=== PATIENT | male | born 1950 | race Caucasian/White ===

== ENCOUNTER → 2017-05-16 | Outpatient (CLI) | payer BC ==
[~2017-05-16] MED LIST: METO25TA3 PO
[2017-05-16 17:47] LABS: ALT/SGPT 20 U/L (12-78); AST/SGOT 13 U/L (15-37); BLOOD UREA NITROGEN 25 mg/dl (7-18); CALCIUM 8.2 mg/dl (8.5-10.1); CARBON DIOXIDE 29 mmol/L (21-32); CHLORIDE 107 mmol/L (98-107); GLUCOSE 92 mg/dl (70-99); POTASSIUM 4.3 mmol/L (3.5-5.1); SODIUM 140 mmol/L (136-145)
[2017-05-16 17:50] LABS: ALB/GLOB RATIO 1.1 (0.9-2); ALKALINE PHOSPHATASE 67 U/L (45-117); CHOLESTEROL 171 mg/dl (0-200); CHOLESTEROL/HDL RATIO 4.2; HDL CHOLESTEROL 41 mg/dl; LDL CHOLESTEROL CALCULATED 106 mg/dl; TRIGLYCERIDES 119 mg/dl (0-150); VERY LOW DENSITY LIPOPROT CALC 24 mg/dl
== END | disposition home or self-care (01) ==
LOC: C.LABPVFM 11:09
PROVIDERS: ATTEND Family Medicine
DX: E78.5 Hyperlipidemia, unspecified (principal); E55.9 Vitamin D deficiency, unspecified

== ENCOUNTER 2025-03-11 08:31 | Observation (INO) ==
--- NOTE | 2025-02-06 12:06 | PAT Medication Instructions ---
Medication Instructions Date of Service February 06, 2025 Home Medications Medication Instructions Recorded Wheeled Walker #1 ea 03/03/23 ondansetron 4 mg disintegrating 4 mg PO Q8 PRN nausea #20 tabs 03/13/23 tablet oxycodone 5 mg tablet 5 - 10 mg (1 - 2 x 5 mg) PO Q6 PRN 03/13/23 pain #40 tabs amoxicillin 875 mg-potassium 1 tab PO BID #20 tabs 02/04/25 clavulanate 125 mg tablet cholecalciferol (vitamin D3) 125 mcg (5,000 unit) tablet (Vitamin D3) 5,000 unit PO QAM cyanocobalamin (vitamin B-12) 1,000 mcg tablet (Vitamin B-12) 1,000 mcg PO QAM metoprolol succinate 25 mg tablet,extended release 24 hr 25 mg PO QAM multivitamin 1 tab PO QAM tamsulosin 0.4 mg capsule 0.4 mg PO HS ondansetron 4 mg disintegrating tablet 4 mg PO Q8 PRN nausea oxycodone 5 mg tablet 5 - 10 mg (1 - 2 x 5 mg) PO Q6 PRN pain amoxicillin 875 mg-potassium clavulanate 125 mg tablet 1 tab PO BID acetaminophen 500 mg tablet (Tylenol Extra Strength) 1,000 mg PO TID PRN pain aspirin 81 mg tablet,delayed release (Edinson Low Dose Aspirin) 81 mg PO QAM evolocumab 140 mg/mL subcutaneous pen injector (Repatha SureClick) 140 mg subcut UD ketorolac 10 mg tablet 10 mg PO Q6 PRN pain Continue as directed amoxicillin 875 mg-potassium clavulanate 125 mg tablet 1 tab PO BID ASK your surgeon for instructions ketorolac 10 mg tablet 10 mg PO Q6 PRN pain ASK your prescriber and surgeon aspirin 81 mg tablet,delayed release (Edinson Low Dose Aspirin) 81 mg PO QAM evolocumab 140 mg/mL subcutaneous pen injector (Repatha SureClick) 140 mg subcut UD DO NOT take the morning of surgery cholecalciferol (vitamin D3) 125 mcg (5,000 unit) tablet (Vitamin D3) 5,000 unit PO QAM cyanocobalamin (vitamin B-12) 1,000 mcg tablet (Vitamin B-12) 1,000 mcg PO QAM multivitamin 1 tab PO QAM Take morning of surgery With a small sip of water, OTHERWISE NOTHING TO EAT OR DRINK AFTER MIDNIGHT: metoprolol succinate 25 mg tablet,extended release 24 hr 25 mg PO QAM ondansetron 4 mg disintegrating tablet 4 mg PO Q8 PRN nausea (if needed) oxycodone 5 mg tablet 5 - 10 mg (1 - 2 x 5 mg) PO Q6 PRN pain (if needed) acetaminophen 500 mg tablet (Tylenol Extra Strength) 1,000 mg PO TID PRN pain (if needed) Take evening before surgery tamsulosin 0.4 mg capsule 0.4 mg PO HS ondansetron 4 mg disintegrating tablet 4 mg PO Q8 PRN nausea (if needed) oxycodone 5 mg tablet 5 - 10 mg (1 - 2 x 5 mg) PO Q6 PRN pain (if needed) acetaminophen 500 mg tablet (Tylenol Extra Strength) 1,000 mg PO TID PRN pain (if needed) Other Notes If you have any questions please call us at [phone] or [phone] or [phone] or [phone]
--- NOTE | 2025-02-13 08:39 | Anesthesiology Consultation ---
Date of Service February 13, 2025 Assessment & Plan (1) Encounter for pre-operative examination: - Case discussed in detail with Dr. Parham who advised patient is acceptable to proceed with elective surgery without further evaluation from his standpoint. - ER 02/04/25 [facility]: "...has an elderly dog that he was taking outside to use the bathroom...dog got startled and bit the patient on the right hand...Patient was given Augmentin and Vicodin here in the ER...will provide a home pack of Vicodin and prescription for Augmentin...Wound was further dressed with a bacitracin dressing, nonadherent, and gauze. Patient is to monitor for signs of infection..." Patient states was also started on doxycycline by [facility] PCP due to new surrounding erythema 02/07 and is doing well now 6 days into 100 mg bid prescription. Surgeon's office made aware. - cardiology [facility] phone visit 01/21/25 S: "...referred for HLD management...controlled dyslipidemia...atherosclerosis-CT chest 07/2018 showing scattered calcified atherosclerotic plaques throughout the descending aorta, also seen on duplex scan of carotid artery 05/2010...will discharge patient from cardiology [facility] at this time..." - cardiology office 10/02/2024 [facility]: "...ascending aortic aneurysm s/p redo- sternotomy and aortic root replacement with a bioprosthetic valve conduit, 27 mm [place] R Epic (bioprosthesis) and a 32 mm Valsalva graft 07/14/14. Hx of remote aortic dissection in 2004 s/p repair...postoperative atrial fibrillation and heart block which spontaneously resolved. Beta-divya subsequently restarted...occasionally experiences a brief 'twang' of pain lasting about ten seconds, which he has had even before his first heart issue. No chest pain with exertion. Occasional heart racing or fluttering, but these episodes do not last long. Experiences dizziness when standing up quickly but denies any persistent dizziness or syncope...no carotid bruits...chronic noncardiac chest discomfort...stable...monitor with echo every 1-2 years... - s/p right TKA 03/15/23 SAB L3-L4 1 attempt + PNB. - Outpatient joint assessment: Patient is currently scheduled for inpatient pathway. If re-evaluated and patient/surgeon requests outpatient pathway, patient is not advised candidate for outpatient joint program. Chart Review Chart Review: Acceptable Risk for Surgery and Patient seen in Pre Admission Testing Teaching & Discussion Pre-Anesthesia Teaching/Discussion Notes: Instructed NPO after midnight before surgery, except medications with 15 cc of water. Medication instructions pr ovided according to the PAT guidelines. History Surgery Operation Date: 03/11/25 07:00 Proposed Procedures p Left Total Knee Arthroplasty - Julio Moran MD Height/Weight Height: 5 ft 7 in Weight: 82.5 kg Allergies Allergy/AdvReac Type Severity Reaction Status Date / Time [id number] Reductase Allergy Mild Muscle Pain Verified 02/06/25 08:33 Inhibitor finasteride AdvReac Intermediate Chest Verified 02/10/25 11:15 tenderness lisinopril AdvReac Intermediate Hyperkalemi Verified 02/10/25 11:15 a Medications Home Medications Medication Instructions Recorded Confirmed Last Taken cholecalciferol (vitamin D3) 125 5,000 unit PO QAM 08/16/18 02/06/25 03/13/23 mcg (5,000 unit) tablet (Vitamin D3) cyanocobalamin (vitamin B-12) 1,000 mcg PO QAM 08/16/18 02/06/25 03/13/23 1,000 mcg tablet (Vitamin B-12) metoprolol succinate 25 mg 25 mg PO QAM 08/16/18 02/06/25 03/15/23 07:00 tablet,extended release 24 hr multivitamin 1 tab PO QAM 08/16/18 02/06/25 03/13/23 tamsulosin 0.4 mg capsule 0.4 mg PO HS 02/28/23 02/06/25 03/14/23 23:30 Wheeled Walker #1 ea 03/03/23 03/03/23 Unknown ondansetron 4 mg disintegrating 4 mg PO Q8 PRN nausea #20 tabs 03/13/23 02/06/25 Unknown tablet oxycodone 5 mg tablet 5 - 10 mg (1 - 2 x 5 mg) PO Q6 PRN 03/13/23 02/06/25 Unknown pain #40 tabs amoxicillin 875 mg-potassium 1 tab PO BID #20 tabs 02/04/25 02/06/25 Unknown clavulanate 125 mg tablet acetaminophen 500 mg tablet 1,000 mg PO TID PRN pain 02/06/25 02/06/25 Unknown (Tylenol Extra Strength) aspirin 81 mg tablet,delayed 81 mg PO QAM 02/06/25 02/06/25 Unknown release (Edinson Low Dose Aspirin) evolocumab 140 mg/mL subcutaneous 140 mg subcut UD 02/06/25 02/06/25 Unknown pen injector (Repvaleriya Monroeick) ketorolac 10 mg tablet 10 mg PO Q6 PRN pain 02/06/25 02/06/25 Unknown Past Medical History Medical History (Updated 02/13/25 @ 08:52 by Melany Garber PA-C) AAA (abdominal aortic aneurysm) s/p redo-sternotomy + root replacement with prosthetic valve conduit (2013) Asymptomatic PVCs BPH (benign prostatic hyperplasia) Dog bite of right hand patient reports healing well, remaining on prescribed antibiotics Hard of hearing hearing aids History of aortic valve replacement 2013 Post-op heart block and a. fib with spontaneous resolution per cardiology records History of atrial fibrillation Perioperative AVR (2013) History of COVID-19 (~2019) 2019- resolved Hx of vertigo Rare Hyperlipidemia Hypertension controlled, stable per pt Peripheral neuropathy Feet Sleep-disordered breathing Hx snoring and witnessed apneas per pt's No formal sleep study Patient denies h/o stroke, seizures, heart attack, heart failure, DM, blood clots/DVTs or blood transfusions. Exercise / Class Metabolic Activity II 4-5 Yardwork/Stairs/Walk up hill (denies chest discomfort or shortness of breath with one flight of stairs) Past Family History Family History Brother Family hx of colon cancer Family/Other Family history of diabetes mellitus Other No family history of adverse response to anesthesia Past Surgical History Surgical History History of anesthesia reaction Slow to wake up, denies needing re-intubation History of appendectomy History of cardiac cath ~2012- no stents History of cataract surgery R/L History of colonoscopy History of tooth extraction S/P AAA (abdominal aortic aneurysm) repair 2003 Status post total right knee replacement Right TKA (03/15/23): SAB at L3/4 (1 attempt) + regional at [facility] Past Anesthesia History No Family Hx of Anesthesia Complications History of PONV No Hx of PONV and No Hx of Motion Sickness Social History Smoking Status: Former smoker tobacco type: cigarettes Do You Dip or Chew Tobacco: No Smoking End Date: 1998 Hx Alcohol Use: Yes Alcohol type: beer and hard liquor alcohol intake frequency: a few times a week Hx Substance Use: No substance use type: does not use Review of Systems Patient denies chest pain, shortness of breath, dyspnea on exertion, reflux, fever, chills, cough, wheezing, or palpitations. Physical Exam Vital Signs Vitals BP 119/72 P 56 TEMP 97.6 SP02 96% on RA RESP 18 Physical Patient resting comfortably in chair in no acute distress, alert and oriented, responding appropriately throughout visit Full cervical extension range of motion without pain TMD 3.5 finger breadths Mallampati Score 3 Dentition: upper partial, denies chipped or loose teeth, caps/crowns, implants or bridges Lungs: normal respiratory effort. Good air movement, clear throughout to auscultation, no adventitious breath sounds Cardiac: regular rate and rhythm, 2/6 systolic murmur noted, no gallops or rubs Carotid arteries: negative bruit bilat Right hand: wound is covered by large bandage, no surrounding erythema/edema Lab Results Anesthesia Preop Results Results Anesthesia Widget: WBC 6.00 K/ul (4.8-10.8) 02/13/25 Hgb 12.6 g/dl (14.0-18.0) L 02/13/25 Hct 36.9 % (42.0-52.0) L 02/13/25 Plt 285 K/uL (130-400) 02/13/25 Na 139 mmol/L (136-145) 02/13/25 K 4.0 mmol/L (3.5-5.1) 02/13/25 Cl 108 mmol/L (98-107) H 02/13/25 CO2 27 mmol/L (21-32) 02/13/25 BUN 26 mg/dl (6-23) H 02/13/25 Creat 0.84 mg/dl (0.6-1.4) 02/13/25 Glucose Level 94 mg/dl (70-99(Fasting)) 02/13/25 PT 10.8 Seconds (9.0-12.0) 02/13/25 PTT 28 Seconds (21-31) 02/13/25 INR 1.0 (0.9-1.1) 02/13/25 Blood Type B Positive 02/13/25 Antibody Screen NEGATIVE 02/13/25 Testing Electrocardiogram Date: 02/13/25 Sinus bradycardia, rate 56 bpm RBBB Chest X-Ray Date: 02/13/25 FINDINGS: Stable cardiac valve repair. Stable mild cardiomegaly without pulmonary vascular congestion. No effusion, consolidation, or pneumothorax. Stable hyperexpanded lungs. IMPRESSION: No acute findings. Echocardiogram Date: 07/26/24 Sinus bradycardia Mild cLVH Normal LV wall motion Grade II diastolic dysfunction Severely enlarged LA Aortic valve bioprosthesis, normal systolic gradients Mildly increased thickness of mitral valve leaflets Moderate 3+ mitral regurgitation Mild tricuspid regurgitation No evidence of pulmonary hypertension Compared to prior study of December 20 2022, there is no significant change Stress Test Date: 11/16/20 Exercise METS 8.5 MPHR 99% Negative for inducible ischemia Normal LV wall motion EF 55-59%
--- NOTE | 2025-02-28 07:54 | History & Physical Report ---
Date of Service February 28, 2025 Assessment & Plan (1) Left knee DJD: 74-year-old gentleman with multiple medical comorbidities now 2 years out from a right knee replaced with advanced left knee DJD. Is failed conservative measures. He would like proceed with left knee replacement. Plan: We are going to plan to take him to the operating the left knee replacement. The risks met this procedure were explained. Informed consent was obtained. Will use aspirin for DVT prophylaxis. Plan to be discharged home with some home health and his 's assistance. (2) Status post total right knee replacement: (3) History of atrial fibrillation: (4) Hyperlipidemia: (5) History of aortic valve replacement: (6) AAA (abdominal aortic aneurysm): (7) Hypertension: History of Present Illness Chief Complaint: . Persistent left knee pain and discomfort. Primary Care Provider: Ministerio Solis MD . The patient is a 74-year-old gentleman who now presents for surgical treatment of his left knee. He is about 2 years out from a right knee replacement which is done pretty well. We have been treating for left knee arthritis as well. This would become less successful over time. Several months ago he did fall and was in the emergency room with his knee pretty swollen. He describes global pain. The more he is up and than what hurts in the more he limps. He is happy with his right knee and would like to have his left knee replaced. Allergies Allergy/AdvReac Type Severity Reaction Status Date / Time [id number] Reductase Allergy Mild Muscle Pain Verified 02/06/25 08:33 Inhibitor finasteride AdvReac Intermediate Chest Verified 02/10/25 11:15 tenderness lisinopril AdvReac Intermediate Hyperkalemi Verified 02/10/25 11:15 a Home Medications Medication Instructions Recorded Confirmed Type cholecalciferol (vitamin D3) 125 5,000 unit PO QAM 08/16/18 02/06/25 History mcg (5,000 unit) tablet (Vitamin D3) cyanocobalamin (vitamin B-12) 1,000 mcg PO QAM 08/16/18 02/06/25 History 1,000 mcg tablet (Vitamin B-12) metoprolol succinate 25 mg 25 mg PO QAM 08/16/18 02/06/25 History tablet,extended release 24 hr multivitamin 1 tab PO QAM 08/16/18 02/06/25 History tamsulosin 0.4 mg capsule 0.4 mg PO HS 02/28/23 02/06/25 History Wheeled Walker #1 ea 03/03/23 03/03/23 Rx ondansetron 4 mg disintegrating 4 mg PO Q8 PRN nausea #20 tabs 03/13/23 02/06/25 Rx tablet oxycodone 5 mg tablet 5 - 10 mg (1 - 2 x 5 mg) PO Q6 PRN 03/13/23 02/06/25 Rx pain #40 tabs amoxicillin 875 mg-potassium 1 tab PO BID #20 tabs 02/04/25 02/06/25 Rx clavulanate 125 mg tablet acetaminophen 500 mg tablet 1,000 mg PO TID PRN pain 02/06/25 02/06/25 History (Tylenol Extra Strength) aspirin 81 mg tablet,delayed 81 mg PO QAM 02/06/25 02/06/25 History release (Edinson Low Dose Aspirin) evolocumab 140 mg/mL subcutaneous 140 mg subcut UD 02/06/25 02/06/25 History pen injector (Repatha SureClick) ketorolac 10 mg tablet 10 mg PO Q6 PRN pain 02/06/25 02/06/25 History Past Med/Surg History Problem List Left knee DJD Encounter for pre-operative examination Right knee pain Bilateral primary osteoarthritis of knee Medical History Hard of hearing hearing aids Sleep-disordered breathing Hx snoring and witnessed apneas per pt's No formal sleep study Peripheral neuropathy Feet Asymptomatic PVCs BPH (benign prostatic hyperplasia) History of atrial fibrillation Perioperative AVR (2013) Hyperlipidemia Hx of vertigo Rare History of COVID-19 (~2019) 2020- resolved History of aortic valve replacement 2013 Post-op heart block and a. fib with spontaneous resolution per cardiology records AAA (abdominal aortic aneurysm) s/p redo-sternotomy + root replacement with prosthetic valve conduit (2013) Hypertension controlled, stable per pt Surgical History History of cardiac cath ~2012- no stents Status post total right knee replacement Right TKA (7/12/23): SAB at L3/4 (1 attempt) + regional at [facility] History of anesthesia reaction Slow to wake up, denies needing re-intubation History of tooth extraction History of cataract surgery R/L S/P AAA (abdominal aortic aneurysm) repair 2003 History of appendectomy History of colonoscopy Family History Brother Family hx of colon cancer Family/Other Family history of diabetes mellitus Other No family history of adverse response to anesthesia Social History Smoking Status: Former smoker Second Hand Exposure: No; Do You Dip or Chew Tobacco: No; Hx Alcohol Use: Yes Alcohol type: beer and hard liquor Hx Substance Use: No Preferred Language: Estonian Communication Ability: Effective Traffic Engineer Required: No Beliefs That Will Affect Care: None Current Living Situation: Spouse Feels Safe at Home: Yes Assistive Devices: Denture - Lower, Glasses and Hearing Aid - Bilateral Review of Systems All systems reviewed & are unremarkable except as noted in HPI & below. Physical Exam . Physical examination was a healthy middle-aged male P looks in pretty good health. Examination of left knee reveal patient ambulates with a slight bit of limp. Good varus alignment to his knee. Bony hypertrophy medially. Range of motion about 5-1 20. No instability. No pain with hip motion. Examination of the right knee reveals well-healed incision. He is got anatomic alignment to the knee. Range of motion 0-1 20. Constitutional WD/WN, vitals as above Respiratory normal respiratory effort, lungs clear to auscultation Cardiovascular RRR, no murmur, no edema Gastrointestinal (Abdomen) normal bowel sounds, soft, nontender, no hepatosplenomegaly Results & Data Results & Data Laboratory Results . Diagnostic Findings . X-rays left knee were reviewed. She has advanced left knee arthritis. She got complete loss of medial joint space. Subchondral sclerosis. Is got varus alignment of the knee. The right knee replacement looks to be in good position without problems. PG Care Time/CCT Total # of Minutes Spent Total Time Spent with Patient: Total time spent is greater than 50% in coordination of care (as documented) at patient's floor/unit and/or counseling patient: Coding Level of Care Code None Diagnoses Left knee DJD M17.12 Status post total right knee replacement Z96.651 History of atrial fibrillation Z86.79 Hyperlipidemia E78.5 History of aortic valve replacement Z95.2 AAA (abdominal aortic aneurysm) I71.4 Hypertension I10
[~2025-03-11 08:31] MED LIST changes: +BUPIVACAINE 0.5 % 5 MG/1 ML PF 10ML VIAL ONE; -METO25TA3 PO; +ROPIVACAINE 0.5% 5 MG/ML 30 ML VIAL ONE
--- NOTE | 2025-03-11 08:56 | History & Physical Bridge Note ---
Date of Service March 11, 2025 History & Physical Bridge Note I have examined the patient, reviewed the History & Physical and in the interval since the performance of the History & Physical I have noted the following changes of clinical significance: no changes noted
[2025-03-11] MEDS: CeleBREX 200 MG CAP PO SCH (09:00)
[2025-03-11] MEDS: ACETAMINOPHEN 500 MG TAB PO SCH ×2 (09:00→16:53)
[2025-03-11] MEDS: FAMOTIDINE 20 MG TAB PO SCH (09:01)
[2025-03-11] MEDS: METOCLOPRAMIDE HCL 10 MG TABLET PO SCH (09:01)
[2025-03-11] MEDS: LR 60ML/HR IV SCH (09:01)
[2025-03-11] MEDS: LR 500ML BOLUS, THEN 15ML/HR IV SCH (09:11)
[2025-03-11] MEDS: dexAMETHasone**PF** 10 MG/ML VIAL IV SCH (09:11)
[2025-03-11] MEDS ORDERED: MIDAZOLAM HCL 1 MG/ML 2ML VIAL ONE (09:29)
[2025-03-11] MEDS ORDERED: PROPOFOL IV EMULSION 10 MG/ML 100 ML VIAL IV ONE (09:30)
[2025-03-11] MEDS ORDERED: ONDANSETRON INJ 2 MG/ML 2 ML VIAL IV PRN ×2 (09:54→15:00)
[2025-03-11] MEDS ORDERED: ATROPINE SULFATE 0.1 MG/ML 10ML SYR IV PRN (09:54)
[2025-03-11] MEDS: ROPIV 0.5% 246mg, Ketorolac 30mg, EPINEPHrine 0.5mg in NSS INFIL SCH (12:27)
--- NOTE | 2025-03-11 13:49 | Operative Report ---
PG Post Operative Report Pre & Post Diagnosis Operation Date: 03/11/25 10:40 Pre-Op Diagnosis: Osteoarthritis Left Knee Post-Op Diagnosis: Osteoarthritis Left Knee I identified the patient and participated in the time-out.: Yes Procedure Operation Date: 03/11/25 10:40 Actual Procedures p Left Total Knee Arthroplasty(Left) - Julio Moran MD Surgeon Julio Moran MD Intensive Care Medicine Specialist Bashir Crisostomo PA-C Estimated Blood Loss 50 Findings Consistent with Post-Op Diagnosis Specimens Left knee sent for pathology. Anesthesia Type Spinal MAC Complications none Disposition Accompanied Patient To Recovery: No Indications Patient is a 74-year-old gentleman with a long history of bilateral knee pain discomfort describes gotten worse over time. He had his right knee replaced 2 years ago and done well from this. He continues to have persistent progressive left knee pain and discomfort and deformity. Failed conservative measures. Elected proceed with left total knee arthroplasty. Description of Procedure Operative implants consist of: 1. Biomet Vanguard size 67.5 left posterior stabilized femoral component. 2. Biomet size 71 tibial tray. 3. 12 mm posterior stabilized polyethylene insert. 4. 31 x 8 all poly patella. The patient was taken to the op room, identified, placed on the operating table in the supine position. All conductors were appropriately padded. IV antibiot ics arrived by anesthesia team. Spinal anesthetic been implemented in the holding area along with an adductor canal block. A left Dalton was then placed. Left lower extremities then prepped and draped in usual sterile fashion. The left leg was elevated and exsanguinated with use of an Esmarch and torse placed at 300 mmHg. An anterior approach left knee was then formed to longitudinal incision centered over the patella. Sharp dissection was Through subcutaneous tissue down the extensor mechanism. A medial parapatellar arthrotomy incision was made. Some subperiosteal dissection was carried out medially. The fat pad was resected from Neath patella tendon. The lateral patellofemoral ligament was released. Patella subluxated laterally and the knee was flexed. The osteophytes were taken off distal femur. The ACL and PCL were then released from the distal femur. The tibia subluxated anteriorly. The external tibial alignment jig was then placed on the interface of the tibia and adjusted 14 mm medially. The proximal tibial cut was made removed out of millimeter or 2 of bone from medial side. Some osteophytes were taken off medially. Tibia sized to a size 71. Attention drawn the femur. The distal femur there was a sharp drop with intramedullary canal was suction. A left 6 degree valgus cutting guide was placed. The distal femoral cutting block was pinned in place. This femoral cut was made to take an additional 3 mm of bone off distal femur. The femur was then sized to a size 70. The AP cutting block was pinned parallel to the epicondylar axis which was 3 degrees of external rotation. The anterior cut, anterior chamfer, posterior cut, posterior chamfer cuts were made. The box cutting guide was placed in the just slightly laterally. The box cut was made. The knee was flexed. The remnants of the medial lateral menisci were excised. The osteophytes taken off the posterior aspect of the femur. A trial femoral component was placed but it was extremely loose. Therefore we decided to use a 67.5 implant and just placed that on the bone cuts and it fit nicely. Good interference fit. The tibial tray was then pinned in Marva external rotation and the drill and stem punch were used to create defect in the proximal tibia for the tibial tray. The knee was then trialed with a 12 mm insert fit most appropriately. Attention drawn the patella. The patella was cleaned of all soft tissue. Patella thickness measured 21 mm in thickness was cut down to 15. Was sized to a size 31 patella. The lug holes were drilled for 31 patella. The lateral osteophytes removed. Patella button was placed. Knee was taken through range of motion patella tracked nicely with no thumbs test. Attention then drawn to placement permanent components. NuPrep all trial components were removed. Bone plug was placed into the distal femur limit blood loss. A double batch of Palacos G cement was mixed. A Biomet Vanguard size 67.5 left posterior stabilized femoral component, a size 71 tibial tray, 12 mm posterior stabilized polyethylene insert, and a 31 x 8 all poly patella then cemented in place. The knee was brought out into full extension till cement hardened. Final cement check was then performed. Pericapsular tissues were injected with total 100 cc of Ortho mix. The patient did receive 1 g tranexamic acid. The tourniquet was then let down for final tourniquet time of 63 minutes. Hemostasis assured use electrocautery. Extensor Meclomen then closed with combination 1 PDS suture and #1 Vicryl suture in a [id number] fashion. Extensor Meclomen checked found to be intact and subcutaneous tissue then closed with 2 Dexon suture in a buried interrupted fashion the skin was closed skin letha. Leg was then cleaned and dried and a sterile dressing with Xeroform, four-port, sterile cast padding, Anibal bandage were applied. Patient then transferred to the recovery room in stable condition. Patient tolerated procedure well and there were no complications. Bashir Crisostomo, my physician certified first assistant, was present for the entire procedure. His assistance was required for proper patient positioning, prepping and draping, surgical exposure, retraction, perform the technical details of the operation, placement of the hardware, closure of the incision site and placement of postoperative sterile bandage. I attest to the content of the Intraoperative Record and any orders documented therein. Any exceptions are noted below.
--- NOTE | 2025-03-11 14:13 | XRay Report ---
XR knee LT 1 or 2V routine HISTORY: 74 years-old Male Surgical Post Op left knee arthroplasty COMPARISON: 11/21/2024 TECHNIQUE: 2 views of the left knee FINDINGS: Total joint arthroplasty with patellar resurfacing. Anterior midline skin letha with expected posto perative soft tissue swelling and deep tissue air. No acute fracture, dislocation or unexpected opaqu e foreign body. IMPRESSION: Total joint arthroplasty with expected postoperative changes. ACT 112: Negative or not required by law. The above report was generated using voice recognition software. It may contain grammatical, syntax o r spelling errors. Electronically signed by: Jose Miguel Adams M.D. 03/11/2025 2:12 PM
--- NOTE | 2025-03-11 14:51 | Anesthesiology Progress Note ---
Date of Service March 11, 2025 Anesthesia Post Procedure Vital Signs Vital Signs: Temp Pulse Pulse Resp BP BP Pulse Ox 03/11/25 14:45 68 16 110/62 95 03/11/25 14:19 36.2 C L 68 16 114/54 L 94 03/11/25 14:10 71 17 110/61 94 03/11/25 14:00 71 16 115/67 96 03/11/25 13:50 70 16 106/61 96 03/11/25 13:40 36.4 C L 72 17 105/63 95 03/11/25 08:51 36.4 C L 61 21 122/80 94 O2 Del Method O2 Flow Rate 03/11/25 14:45 Nasal Cannula 2 03/11/25 14:19 Nasal Cannula 2 03/11/25 14:10 Room Air 03/11/25 14:00 Oxymask 5 03/11/25 13:50 Oxymask 5 03/11/25 13:40 Oxymask 5 03/11/25 08:51 Room Air Pain Intensity Left Knee: Pain Intensity: 6 Transfer of Care Handoff Completed per policy Notes Mental Status: alert / awake / arousable and participated in evaluation Nausea / Vomiting: adequately controlled Pain: adequately controlled Airway Patency, RR, SpO2: stable & adequate BP & HR: stable & adequate Hydration State: stable & adequate Anesthetic Complications: no major complications apparent and Pt Satisfied with anesthetic care
[2025-03-11] MEDS ORDERED: HYDROmorphone INJ 0.5 MG/0.5 ML SYR IV PRN (15:00)
[2025-03-11] MEDS ORDERED: METOCLOPRAMIDE HCL INJ 5 MG/ML 2 ML VIAL IV PRN (15:00)
[2025-03-11] MEDS ORDERED: MAGNESIUM HYDROXIDE SUSP 30 ML UDC PO PRN (15:00)
[2025-03-11] MEDS ORDERED: ACETAMINOPHEN 500 MG TAB PO PRN (15:00)
[2025-03-11] MEDS ORDERED: NALOXONE HCL 0.4 MG/1 ML VIAL/CARP IV PRN (15:00)
[2025-03-11] MEDS ORDERED: ALUMINUM/MAGNESIUM SUSP 30 ML UDC PO PRN (15:00)
[2025-03-11] MEDS: ORTHO JOINT ANESTHETIC ONE (15:04)
[2025-03-11] MEDS: SODIUM CHLORIDE 0.9% 1,000 ML IV SCH (16:49)
[2025-03-11] MEDS: ASCORBIC ACID 500 MG TAB PO SCH (16:50)
[2025-03-11] MEDS: KETOROLAC TROMETHAMINE 15 MG/ML VIAL IV SCH (16:54)
[2025-03-11] MEDS: SENNA 8.6 MG TAB PO SCH (20:46)
[2025-03-11] MEDS: ASPIRIN 81 MG ECTAB PO SCH (20:46)
[2025-03-11] MEDS: TAMSULOSIN HCL 0.4 MG CAP PO SCH (20:47)
[2025-03-11] MEDS: DOCUSATE SODIUM 100 MG CAP PO SCH (20:47)
[2025-03-11] MEDS: TRANEXAMIC ACID / 0.7% NACL 1,000 MG/100 ML BAG IV SCH (20:48)
[2025-03-11] MEDS ORDERED: SENNA 8.6 MG TAB PO SCH (21:00)
[2025-03-12 07:38] VITALS: PULSE 61
[2025-03-12] MEDS: CYANOCOBALAMIN (B-12) 500 MCG TABLET PO SCH (07:55)
[2025-03-12] MEDS: CHOLECALCIFEROL 125 MCG (5,000 UNITS) TAB PO SCH (07:55)
[2025-03-12] MEDS: MULTIVITAMIN TAB PO SCH (07:55)
[2025-03-12 07:56] LABS: Hematocrit (blood only) 34.9 % (42.0-52.0); Hemoglobin 12.3 g/dl (14.0-18.0); Mean Corpuscular Hemoglobin 30.8 pg (25.0-34.0); Mean Corpuscular Volume 87.5 fL (80.0-100.0); Platelet Count 253 K/uL (130-400); RDW Standard Deviation 41.1 fL (36.4-46.3); Red Blood Count 3.99 M/uL (4.70-6.10); White Blood Count 14.83 K/ul (4.8-10.8)
[2025-03-12] MEDS: dexAMETHasone 10 MG in SYRINGE 0 ML IV SCH (07:56)
[2025-03-12] MEDS: METOPROLOL SUCC 25MG EXT REL TAB PO SCH (07:56)
[2025-03-12 08:18] LABS: Anion Gap 8.0 (3-11); Blood Urea Nitrogen 27.0 mg/dl (6-23); Calcium 8.1 mg/dl (8.6-10.3); Carbon Dioxide 24.0 mmol/L (21-32); Chloride 106.0 mmol/L (98-107); Creatinine Clr Calc Pharmacy 62.3 ml/min; Glucose 121.0 mg/dl (70-99(Fasting)); Potassium 4.2 mmol/L (3.5-5.1); Sodium 138.0 mmol/L (136-145)
[2025-03-12] MEDS ORDERED: NON-FORMULARY MEDICATION (Multivitamin Tablet) PO SCH (09:00)
--- NOTE | 2025-03-12 09:48 | Orthopedic Progress Note ---
Date of Service March 12, 2025 Assessment & Plan (1) Status post left knee replacement: Plan: 74-year-old gentleman now postop day 1 from left knee replacement doing quite well. Pain is controlled. He is ambulating quite well independently even without a cane or walker. Hoping to go home. Plan: 1. DVT prophylaxis including thigh-high teds, SCDs, aspirin twice a day. 2. PT/OT. Weight-bear as tolerated. Left total knee protocol. 3. Pain control. Doing well with current pain regimen. 4. Disposition. Plan is to discharge to home. He is going to do outpatient therapy just like he did for his other knee. Admission and Anticipated Discharge Date Admission Date: March 11, 2025 Subjective 74-year-old gentleman postop day 1 from left knee replacement. He is doing quite well. Reports no significant pain. He has been up walking around his room by himself and hoping to go home. No chest pain or shortness of breath. Not feeling dizzy or lightheaded. Physical Exam Physical Exam: Physical examination of the left leg reveal patient ambulates quite well independently. Dressings clean dry and intact. No drainage. Can dorsiflex and plantarflex his foot appropriately. He is got a good straight leg raise. Respiratory: normal respiratory effort, lungs clear to auscultation Cardiovascular: RRR, no murmur, no edema Gastrointestinal (Abdomen): normal bowel sounds, soft, nontender, no hepatosplenomegaly Results & Data Vital Signs (Past 12 Hours) Vital Signs Temp Pulse Resp BP BP Pulse Ox O2 Del Method 03/12/25 07:35 36.5 C 61 18 93/54 L 95 Room Air 03/12/25 03:46 36.7 C 72 18 108/51 L 97 Room Air 03/11/25 23:00 36.7 C 69 18 99/52 L 95 Room Air Laboratory Results Hemoglobin is 12.3. Hematocrit is 34.9. Electrolytes are stable.
[2025-03-12 11:35] VITALS: BP 104/63; RESP 16; TEMP 97.9; O2SAT 98
== END 2025-03-12 14:29 | disposition home health service (06) ==
LOC: ASU 08:31 → 3E 08:31